=== PATIENT | male | born 1980 | race Two or more races ===

== ENCOUNTER 2019-01-13 21:33 | Emergency (ER) | payer OTHER ==
[~2019-01-13] VITALS: Ht 170.2 cm; Wt 85.3 kg
[2019-01-13 21:46] VITALS: BP 154/77
== END 2019-01-13 22:29 | disposition left against medical advice (07) ==
LOC: ER 21:37
DX: Z53.21 Procedure and treatment not carried out due to patient leaving prior to being seen by health care provider (principal); L29.9 Pruritus, unspecified; I10 Essential (primary) hypertension

== ENCOUNTER 2019-01-19 03:46 | Emergency (ER) | payer OTHER ==
[~2019-01-19] VITALS: Ht 180.3 cm; Wt 113.4 kg
[2019-01-19 04:13] VITALS: BP 162/106
--- NOTE | 2019-01-19 04:19 | NUR ---
AT THE BED SIDE
--- NOTE | 2019-01-19 05:11 | NUR ---
Patient given rx and written and verbal discharge instructions. Patient verbalizes understanding of instructions. Patient is ambulatory with steady gait. Refuses offer of residential placement. Patient given food and snacks. pt had proper clothing on .pt will will his own tranportation
== END 2019-01-19 05:00 | disposition home or self-care (01) ==
LOC: ER 03:46
DX: B86 Scabies (principal); I10 Essential (primary) hypertension; Z88.9 Allergy status to unspecified drugs, medicaments and biological substances